=== PATIENT | male | born 1955 | race Caucasian/White ===

== ENCOUNTER 2017-03-05 09:22 | Emergency (ER) | payer OTHER ==
[~2017-03-05] VITALS: Ht 175.3 cm; Wt 95.0 kg
[~2017-03-05 09:22] MED LIST: ASPI-515 PO; CYCL5TAB PO; GABAPENTIN PO; HYDR-3240 PO; IBUP800T PO; ONDA4TAB10 PO; SIMV10TA3 PO; TRAMADOL PO
[2017-03-05] MEDS ORDERED: TAMS-11 PO (09:59)
[2017-03-05] MEDS ORDERED: ASPI-515 PO (09:59)
[2017-03-05] MEDS ORDERED: ONDANSETRON 2MG/ML, 2ML ONE (10:18)
[2017-03-05] MEDS ORDERED: MORPHINE SULFATE 4 MG/ML, 1ML ONE (10:18)
[2017-03-05] MEDS ORDERED: ONDANSETRON 2MG/ML, 2ML IVPush ONE (10:30)
[2017-03-05] MEDS ORDERED: SODIUM CHLORIDE FLUSH 10ML SYR IVF ONE (10:30)
[2017-03-05] MEDS ORDERED: SODIUM CHLORIDE 0.9% 1,000ML IVBOLUS ONE (10:30)
[2017-03-05] MEDS ORDERED: MORPHINE SULFATE 4 MG/ML, 1ML IVPush PRN (10:30)
[2017-03-05 10:33] LABS: ASPARTATE AMINO TRANSFERASE 19 U/L (15-37); BLOOD UREA NITROGEN 27 mg/dL (7-18)
[2017-03-05 11:29] VITALS: BP 116/74
[2017-03-05] MEDS ORDERED: OMNIPAQUE 350 MG/ML, 100ML BOTTLE ONE (16:48)
== END 2017-03-05 14:33 | disposition home or self-care (01) ==
LOC: ED 10:51
DX: R19.7 Diarrhea, unspecified (principal); E78.5 Hyperlipidemia, unspecified; Z87.891 Personal history of nicotine dependence
CPT/HCPCS: 36415; 74177; 80053; 81003; 83690; 85025; 93005; 96361; 96374; 96375; 99285; J2405; J7030; Q9967

== ENCOUNTER 2018-05-05 14:34 | Inpatient (IN) | payer OTHER ==
[~2018-05-05] VITALS: Ht 172.7 cm; Wt 83.9 kg
[~2018-05-05 14:34] MED LIST changes: +IBUP-1223 PO; -IBUP800T PO; +TAMS-11 PO
[2018-05-05] MEDS ORDERED: SODIUM CHLORIDE FLUSH 10ML SYR IVF ONE (15:00)
[2018-05-05] MEDS ORDERED: CHOL200074 PO (15:02)
[2018-05-05 15:38] LABS: BASOPHILS # (AUTO) 0.03 x10^3/uL (0-0.1); BASOPHILS % (AUTO) 0 % (0-1); EOSINOPHILS # (AUTO) 0.14 x10^3/uL (0-0.4); EOSINOPHILS % (AUTO) 1 % (1-7); LYMPHOCYTES # (AUTO) 1.17 x10^3/uL (1-3.4); LYMPHOCYTES % (AUTO) 12 % (22-44); MD NO; MEAN CORPUSCULAR HEMOGLOBIN 30.1 pg (27.5-34.5); MEAN CORPUSCULAR HGB CONC 33.7 g/dL (33.2-36.2); MEAN CORPUSCULAR VOLUME 89.2 fL (81-97); MEAN PLATELET VOLUME 10.1 fL (7.4-10.4); MONOCYTES # (AUTO) 0.48 x10^3/uL (0.2-0.8); MONOCYTES % (AUTO) 5 % (2-9); NEUTROPHILS # (AUTO) 8.11 x10^3/uL (1.8-6.8); NEUTROPHILS % (AUTO) 82 % (42-75); PLATELET COUNT 192 x10^3/uL (130-400); RED BLOOD COUNT 5.56 x10^6/uL (4.38-5.82); RED CELL DISTRIBUTION WIDTH 14.4 % (9.4-14.8)
[2018-05-05 15:48] LABS: ALBUMIN 3.9 g/dL (3.4-5.0); ANION GAP 7 mmol/L (5-15); CHLORIDE 107 mmol/L (98-107)
[2018-05-05 15:53] LABS: CREATININE 0.98 mg/dL (0.7-1.3); T4 (THYROXINE) 12.2 mcg/dL (4.5-12.1); TROPONIN I < 0.015 ng/mL (0.000-0.045)
[2018-05-05] MEDS ORDERED: hydrALAzine 20 MG/ML, 1ML IVPush PRN (17:30)
[2018-05-05 18:19] VITALS: BP 134/72
[2018-05-05 20:19] VITALS: BP 118/76
[2018-05-05] MEDS ORDERED: SIMVASTATIN 5 MG TABLET ONE (20:41)
[2018-05-05] MEDS: ACETAMINOPHEN 325 MG TABLET PO PRN (20:49)
[2018-05-05] MEDS: ASPIRIN 81 MG TABLET EC PO SCH (20:49)
[2018-05-05] MEDS: SIMVASTATIN 10 MG TABLET PO SCH (20:50)
[2018-05-05] MEDS: SODIUM CHLORIDE 0.9% 1,000 ML IV SCH (20:51)
[2018-05-05] MEDS: HEPARIN 5,000 UNITS/ML, 1ML SQ SCH (20:51)
[2018-05-06 00:15] LABS: AMPHETAMINE SCREEN, URINE Negative (Negative); BARBITURATE SCREEN, URINE Negative (Negative); BENZODIAZEPINE SCREEN, URINE Negative (Negative); CANNABINOID SCREEN, URINE Positive (Negative); COCAINE SCREEN, URINE Negative (Negative); METHADONE SCREEN, URINE Negative (Negative); OPIATE SCREEN, URINE Negative (Negative)
[2018-05-06 03:33] VITALS: BP 114/68
[2018-05-06] MEDS: HEPARIN 5,000 UNITS/ML, 1ML SQ SCH ×3 (05:10→21:08)
[2018-05-06] MEDS: SODIUM CHLORIDE 0.9% 1,000 ML IV SCH ×2 (05:10→13:00)
[2018-05-06 05:35] LABS: BASOPHILS # (AUTO) 0.04 x10^3/uL (0-0.1); BASOPHILS % (AUTO) 1 % (0-1); EOSINOPHILS # (AUTO) 0.28 x10^3/uL (0-0.4); EOSINOPHILS % (AUTO) 4 % (1-7); LYMPHOCYTES # (AUTO) 1.83 x10^3/uL (1-3.4); LYMPHOCYTES % (AUTO) 24 % (22-44); MD NO; MEAN CORPUSCULAR HEMOGLOBIN 29.8 pg (27.5-34.5); MEAN CORPUSCULAR HGB CONC 33.1 g/dL (33.2-36.2); MEAN CORPUSCULAR VOLUME 89.9 fL (81-97); MEAN PLATELET VOLUME 10.5 fL (7.4-10.4); MONOCYTES % (AUTO) 7 % (2-9); NEUTROPHILS % (AUTO) 65 % (42-75); PLATELET COUNT 192 x10^3/uL (130-400); RED BLOOD COUNT 5.07 x10^6/uL (4.38-5.82); RED CELL DISTRIBUTION WIDTH 14.4 % (9.4-14.8)
[2018-05-06 05:44] LABS: CHLORIDE 110 mmol/L (98-107)
[2018-05-06 05:52] LABS: ALANINE AMINOTRANSFERASE 18 U/L (12-78); ALBUMIN 3.2 g/dL (3.4-5.0); ALKALINE PHOSPHATASE 68 U/L (45-117); ANION GAP 9 mmol/L (5-15); BILIRUBIN,TOTAL 1.1 mg/dL (0.2-1.0); CALCIUM 8.8 mg/dL (8.5-10.1); CHOL/HDL RATIO 5.1; CHOLESTEROL, TOTAL 142 mg/dL (140-239); CREATININE 0.92 mg/dL (0.7-1.3); HDL CHOL % 20 % (26-37); HDL CHOLESTEROL (DIRECT) 28 mg/dL (40-60); LDL CHOLESTEROL,CALCULATED 82 mg/dL (54-169); LDL/HDL RATIO 2.9 (0.5-3.0); TOTAL PROTEIN 6.4 g/dL (6.4-8.2); TRIGLYCERIDES 158 mg/dL (50-200); VLDL CHOLESTEROL 32 mg/dL (0-25)
[2018-05-06 08:52] VITALS: BP 125/73
[2018-05-06 08:54] VITALS: BP 124/74
[2018-05-06 08:55] VITALS: BP 121/77
[2018-05-06] MEDS: CHOLECALCIFEROL 1,000 UNIT TABLET PO SCH (09:07)
[2018-05-06] MEDS: ACETAMINOPHEN 325 MG TABLET PO PRN ×2 (11:39→16:46)
[2018-05-06] MEDS ORDERED: OMNIPAQUE 350 MG/ML, 100ML BOTTLE ONE (12:03)
[2018-05-06 13:24] VITALS: BP 129/68
[2018-05-06 20:00] VITALS: BP 127/68
[2018-05-06] MEDS: SIMVASTATIN 10 MG TABLET PO SCH (21:00)
[2018-05-06] MEDS ORDERED: SIMVASTATIN 5 MG TABLET ONE (21:03)
[2018-05-06] MEDS: ASPIRIN 81 MG TABLET EC PO SCH (21:08)
[2018-05-07 01:14] VITALS: BP 126/65
[2018-05-07] MEDS: HEPARIN 5,000 UNITS/ML, 1ML SQ SCH (05:41)
[2018-05-07 07:35] VITALS: BP_SYST 135; BP_SYST 136; BP_SYST 145; BP_DIAS 79; BP_DIAS 85; BP_DIAS 86
[2018-05-07] MEDS: CHOLECALCIFEROL 1,000 UNIT TABLET PO SCH (08:50)
[2018-05-07] MEDS: ACETAMINOPHEN 325 MG TABLET PO PRN (12:26)
[2018-05-07] MEDS ORDERED: SIMV20TA PO (13:01)
== END 2018-05-07 13:59 | disposition home or self-care (01) | DRG 312 ==
LOC: ED 15:39 → EDIP 16:12 → 5SO 18:09 → DCLOUNGE 05-07 13:49
PROVIDERS: ADMIT Internal Medicine; ATTEND Internal Medicine
DX: I95.1 Orthostatic hypotension (principal); G89.29 Other chronic pain; F12.90 Cannabis use, unspecified, uncomplicated; E78.5 Hyperlipidemia, unspecified; R00.1 Bradycardia, unspecified; M54.9 Dorsalgia, unspecified; M54.2 Cervicalgia; W18.39XA Other fall on same level, initial encounter; W22.01XA Walked into wall, initial encounter; N40.0 Benign prostatic hyperplasia without lower urinary tract symptoms; Z80.3 Family history of malignant neoplasm of breast; Z83.3 Family history of diabetes mellitus; Z85.820 Personal history of malignant melanoma of skin; Z87.891 Personal history of nicotine dependence; Y92.090 Kitchen in other non-institutional residence as the place of occurrence of the external cause; Y99.8 Other external cause status
CPT/HCPCS: 36415; 70450; 71045; 71275; 80048; 80053; 80061; 80307; 82040; 83735; 84100; 84436; 84439; 84443; 84484; 85025; 85379; 93005; 93306; 93880; J1644; Q9967; J7030